=== PATIENT | female | born 1990 | race Caucasian/White ===

== ENCOUNTER 2018-04-23 16:37 | Inpatient (IN) | payer MEDICAID ==
[2018-04-23] MEDS ORDERED: MISOPROSTOL 200 MCG TAB PR (17:30)
[2018-04-23] MEDS ORDERED: OXYTOCIN 30 UNITS/LR 500 ML IV ×2 (17:30)
[2018-04-23] MEDS ORDERED: CARBOPROST 250 MCG INJ IM (17:30)
[2018-04-23] MEDS ORDERED: METHYLERGONOVINE 0.2 MG INJ IM (17:30)
[2018-04-23 17:48] LABS: ADD MAN DIFF? NO
[2018-04-23 17:53] LABS: BASOPHILS % 0.3 % (0.0-2.0); EOSINOPHILS # 0.1 10^3/ul (0.0-0.5); EOSINOPHILS % 0.7 % (0.0-7.0); HEMATOCRIT 35.3 % (37.0-47.0); HEMOGLOBIN 11.2 g/dl (12.0-16.0); LYMPHOCYTES # 2.6 10^3/ul (0.8-2.9); LYMPHOCYTES % 22.7 % (15.0-51.0); MEAN CORPUSCULAR HEMOGLOBIN 26.7 pg (29.0-33.0); MEAN CORPUSCULAR HGB CONC 31.7 g/dl (32.0-37.0); MEAN CORPUSCULAR VOLUME 84.2 fl (82.0-101.0); MEAN PLATELET VOLUME 12.1 fl (7.4-10.4); MONOCYTE # 0.6 10^3/ul (0.3-0.9); MONOCYTES % 5.1 % (0.0-11.0); NEUTROPHIL # 8.1 10^3/ul (1.6-7.5); NEUTROPHILS % 70.7 % (39.0-77.0); PLATELET COUNT 242 10^3/UL (140-415); RED BLOOD COUNT 4.19 10^6/ul (4.20-5.40); RED CELL DISTRIBUTION WIDTH 13.2 % (11.5-14.5)
[2018-04-23 17:53] LABS: WHITE BLOOD COUNT 11.5 10^3/ul (4.8-10.8)
[2018-04-23 18:05] LABS: PROTIME 12.2 Sec (11.9-14.9)
[2018-04-23 18:06] LABS: PARTIAL THROMBOPLASTIN TIME 28.8 Sec (23.0-35.0)
[2018-04-23 18:09] LABS: GLUCOSE 112 mg/dl (70-220)
[2018-04-23 19:02] LABS: HEPATITIS B SURFACE ANTIGEN NEGATIVE (NEGATIVE)
[2018-04-23] MEDS: LACTATED RINGER'S 1,000 ML IV (19:31)
[2018-04-24] MEDS: LACTATED RINGER'S 1,000 ML IV ×4 (01:02→21:56)
[2018-04-24] MEDS ORDERED: FAMOTIDINE 20 MG INJ (02:13)
[2018-04-24] MEDS ORDERED: METOCLOPRAMIDE 10 MG INJ (02:15)
[2018-04-24] MEDS ORDERED: CITRIC ACID/NA CITRATE 30 ML CUP (02:16)
[2018-04-24] MEDS: CEFAZOLIN 2 GM/50 ML (PMX) 50 ML IVPB (02:21)
[2018-04-24] MEDS ORDERED: CARBOPROST 250 MCG INJ IM (04:30)
[2018-04-24] MEDS ORDERED: METHYLERGONOVINE 0.2 MG INJ IM (04:30)
[2018-04-24] MEDS ORDERED: MISOPROSTOL 200 MCG TAB PR (04:30)
[2018-04-24] MEDS: OXYTOCIN 30 UNITS/LR 500 ML IV ×2 (05:42→10:39)
[2018-04-24] MEDS ORDERED: DIPHENHYDRAMINE 50 MG INJ IV (06:00)
[2018-04-24] MEDS: HYDROmorphONE 0.5 MG/0.5 ML SYG IV (06:23)
[2018-04-24] MEDS: ONDANSETRON 4 MG INJ IV (07:38)
[2018-04-24] MEDS: FAMOTIDINE 20 MG INJ IV (08:26)
[2018-04-24] MEDS: METOCLOPRAMIDE 10 MG INJ IV (08:27)
[2018-04-24] MEDS: CITRIC ACID/NA CITRATE 30 ML CUP PO (08:27)
[2018-04-24] MEDS: IBUPROFEN 800 MG TAB PO ×3 (08:29→18:00)
[2018-04-24] MEDS: LANOLIN 7 GM TUBE TOP (09:56)
[2018-04-24 16:25] LABS: RAPID PLASMA REAGIN NONREACTIVE (NR)
[2018-04-24] MEDS: OXYCODONE/ACETAMINOPHEN (5/325) TAB PO (22:38)
[2018-04-25] MEDS: LACTATED RINGER'S 1,000 ML IV ×3 (04:17→20:17)
[2018-04-25] MEDS: IBUPROFEN 800 MG TAB PO ×5 (06:00→23:30)
[2018-04-25 10:08] LABS: ADD MAN DIFF? NO
[2018-04-25 10:10] LABS: BASOPHILS % 0.3 % (0.0-2.0); EOSINOPHILS # 0.1 10^3/ul (0.0-0.5); EOSINOPHILS % 0.6 % (0.0-7.0); HEMATOCRIT 30.7 % (37.0-47.0); HEMOGLOBIN 9.8 g/dl (12.0-16.0); LYMPHOCYTES # 1.5 10^3/ul (0.8-2.9); LYMPHOCYTES % 14.3 % (15.0-51.0); MEAN CORPUSCULAR HEMOGLOBIN 27.2 pg (29.0-33.0); MEAN CORPUSCULAR HGB CONC 31.9 g/dl (32.0-37.0); MEAN CORPUSCULAR VOLUME 85.3 fl (82.0-101.0); MEAN PLATELET VOLUME 12.1 fl (7.4-10.4); MONOCYTE # 0.5 10^3/ul (0.3-0.9); MONOCYTES % 4.2 % (0.0-11.0); NEUTROPHIL # 8.6 10^3/ul (1.6-7.5); PLATELET COUNT 189 10^3/UL (140-415); RED CELL DISTRIBUTION WIDTH 13.4 % (11.5-14.5)
[2018-04-25 10:10] LABS: WHITE BLOOD COUNT 10.7 10^3/ul (4.8-10.8)
[2018-04-25] MEDS: OXYCODONE/ACETAMINOPHEN (5/325) TAB PO (11:23)
[2018-04-26] MEDS: LACTATED RINGER'S 1,000 ML IV (04:17)
[2018-04-26] MEDS: IBUPROFEN 800 MG TAB PO ×2 (04:40→12:00)
[2018-04-26] MEDS: OXYCODONE/ACETAMINOPHEN (5/325) TAB PO (10:37)
[2018-04-27] MEDS ORDERED: DIPHTH/TET/ACEL PERTUSS (ADULT) 0.5 ML VIAL IM* (09:00)
== END 2018-04-26 12:10 | disposition home or self-care (01) | DRG 785 ==
LOC: L-D 16:37 → PP1 04-24 07:59 → L-D 17:35
PROVIDERS: Obstetrics & Gynecology
PROC: 10D00Z1 Extraction of Products of Conception, Low, Open Approach (ICD-10-PCS; principal; 2018-04-24)
PROC: 0UB70ZZ Excision of Bilateral Fallopian Tubes, Open Approach (ICD-10-PCS; 2018-04-24)
DX: O24.429 Gestational diabetes mellitus in childbirth, unspecified control (principal); O32.1XX0 Maternal care for breech presentation, not applicable or unspecified; Z3A.38 38 weeks gestation of pregnancy; Z37.0 Single live birth; Z30.2 Encounter for sterilization
CPT/HCPCS: 76815; 82947; 82962; 85025; 85610; 85730; 86592; 86850; 86900; 86901; 87340; 88302; 90686; 99464

== ENCOUNTER 2018-11-27 19:01 | Emergency (ER) | payer MEDICAID ==
[2018-11-28 00:13] LABS: ADD MAN DIFF? NO
[2018-11-28 00:15] LABS: WHITE BLOOD COUNT 8.9 10^3/ul (4.8-10.8)
[2018-11-28 00:15] LABS: BASOPHIL # 0.1 10^3/ul (0.0-0.1); BASOPHILS % 0.8 % (0.0-2.0); EOSINOPHILS # 0.3 10^3/ul (0.0-0.5); HEMATOCRIT 39.3 % (37.0-47.0); HEMOGLOBIN 13.1 g/dl (12.0-16.0); LYMPHOCYTES # 3.4 10^3/ul (0.8-2.9); LYMPHOCYTES % 37.9 % (15.0-51.0); MEAN CORPUSCULAR HEMOGLOBIN 28.4 pg (29.0-33.0); MEAN CORPUSCULAR HGB CONC 33.3 g/dl (32.0-37.0); MEAN CORPUSCULAR VOLUME 85.1 fl (82.0-101.0); MEAN PLATELET VOLUME 10.9 fl (7.4-10.4); MONOCYTE # 0.6 10^3/ul (0.3-0.9); MONOCYTES % 6.5 % (0.0-11.0); NEUTROPHIL # 4.6 10^3/ul (1.6-7.5); NEUTROPHILS % 51.2 % (39.0-77.0); PLATELET COUNT 270 10^3/UL (140-415); RED BLOOD COUNT 4.62 10^6/ul (4.20-5.40); RED CELL DISTRIBUTION WIDTH 13.1 % (11.5-14.5)
[2018-11-28 00:31] LABS: ANION GAP 15 (5-13); BLOOD UREA NITROGEN 11 mg/dl (7-20); CALCIUM 9.5 mg/dl (8.4-10.2); CARBON DIOXIDE 25 mmol/L (21-31); CHLORIDE 105 mmol/L (97-110); CREATININE 0.49 mg/dl (0.44-1.00); Estimated GFR > 60 mL/min (>60); GLUCOSE 124 mg/dl (70-220); SODIUM 145 mmol/L (135-144)
[2018-11-28 00:52] LABS: INR 0.93; PROTIME 12.6 Sec (11.9-14.9)
[2018-11-28 00:53] LABS: PARTIAL THROMBOPLASTIN TIME 33.4 Sec (23.0-35.0)
[2018-11-28] MEDS: MEDROXYPROGESTERONE 10 MG TAB PO (01:51)
[2018-11-28 02:07] LABS: ADD UMIC YES; UR ASCORBIC ACID NEGATIVE (NEGATIVE); UR BACTERIA FEW /HPF (NONE SEEN); UR BILIRUBIN (Dip) NEGATIVE (NEGATIVE); UR BLOOD (Dip) 3+ mg/dL (NEGATIVE); UR CLARITY CLOUDY (CLEAR); UR COLOR RED (YELLOW); UR GLUCOSE (Dip) NEGATIVE (NEGATIVE); UR KETONES (Dip) NEGATIVE (NEGATIVE); UR LEUKOCYTE ESTERASE (Dip) 1+ Leu/ul (NEGATIVE); UR MUCUS MODERATE /HPF (NONE SEEN); UR NITRITE (Dip) NEGATIVE (NEGATIVE); UR RBC > 182 /HPF (0-5); UR SPECIFIC GRAVITY (Dip) 1.026 (1.003-1.030); UR SQUAMOUS EPITHELIAL CELL MANY /HPF (FEW); UR TOTAL PROTEIN (Dip) 2+ mg/dl (NEGATIVE); UR UROBILINOGEN (Dip) NEGATIVE (NEGATIVE); UR WBC 74 /HPF (0-5)
== END 2018-11-28 02:49 | disposition home or self-care (01) ==
LOC: FTE 11-28 02:49
DX: N93.8 Other specified abnormal uterine and vaginal bleeding (principal)
CPT/HCPCS: 36415; 76856; 80048; 81001; 81025; 85025; 85610; 85730; 86850; 86900; 86901; 99284-25